=== PATIENT | female | born 1985 | race Caucasian/White ===

== ENCOUNTER 2022-12-03 14:40 | Inpatient (IN) | payer OTHER, SELFPAY ==
[2022-12-03] VITALS (90 sets, daily range): BP systolic 109–188; BP diastolic 51–165; PULSE 57–110; RESP 16–18; TEMP 36.6–36.9; O2SAT 98–100; BMI 27.3
[2022-12-03] MEDS: LACTATED RINGERS 1,000 ML 125 ML IV CONT ×2 (15:10→15:54)
[2022-12-03 15:17] LABS: Basophils Percent Auto 0.5 % (0.2-1.2); Eosinophils Percent Auto 0.3 % (0-4.4); Hemoglobin 13.5 g/dL (12.0-15.0); Immature Granulocyte Absolute 0.05 K/mm3 (0.00-0.031); Immature Granulocyte Percent A 0.6 % (0-0.5); Lymphocytes Absolute Auto 1.22 K/mm3 (0.9-3.2); Mean Corpuscular HGB Conc 33.8 g/dl (32-36); Mean Corpuscular Hemoglobin 32.5 pg (26-34); Mean Corpuscular Volume 96.4 fl (80-100); Mean Platelet Volume 10.2 fl (7.4-10.4); Monocytes Absolute Auto 0.8 K/mm3 (0.1-0.6); Monocytes Percent Auto 9.2 % (2.6-8.5); Neutrophils Absolute Auto 6.6 K/mm3 (1.3-6.7); Neutrophils Percent Auto 75.4 % (45.5-73.1); Platelet Count Result 205 k/mm3 (150-375); Red Blood Count 4.15 M/mm3 (4.2-5.4); Red Cell Distribution Width 13.7 % (11.5-14.5); White Blood Count 8.7 K/mm3 (4.5-10.0)
--- NOTE | 2022-12-03 15:53 | P.PNAN_ITS ---
Anes - Eval Pre Procedure Procedure: labor epidural Date/Time: 12/03/22 15:53 Preop Diagnosis: labor pain Pre Op Diagnosis: IOL Patient Data Age: 37 Gender: F Height: Weight: Last Vital Signs O2 Del Method Room Air 12/03/22 15:21 Allergies Allergy/AdvReac Type Severity Reaction Status Date / Time Penicillins Allergy Rash Verified 11/05/22 12:26 Home Medications Medication Instructions Recorded Confirmed Type prenat.vits,tomi,[id number] 1 tablet PO DAILY 11/05/22 11/05/22 History Laboratory Tests 12/03/22 15:06 WBC 8.7 K/mm3 (4.5-10.0) RBC 4.15 L M/mm3 (4.2-5.4) Hgb 13.5 g/dL (12.0-15.0) Hct 40.0 % (37.0-47.0) MCV 96.4 fl (80-100) MCH 32.5 pg (26-34) MCHC 33.8 g/dl (32-36) RDW 13.7 % (11.5-14.5) Plt Count 205 k/mm3 (150-375) MPV 10.2 fl (7.4-10.4) Immature Gran % (Auto) 0.6 H % (0-0.5) Neut % (Auto) 75.4 H % (45.5-73.1) Lymph % (Auto) 14.0 L % (18.3-44.2) [place] % (Auto) 9.2 H % (2.6-8.5) Eos % (Auto) 0.3 % (0-4.4) Baso % (Auto) 0.5 % (0.2-1.2) Lymph # (Auto) 1.22 K/mm3 (0.9-3.2) [place] # (Auto) 0.8 H K/mm3 (0.1-0.6) Eos # (Auto) 0.0 K/mm3 (0-0.3) Baso # (Auto) 0.0 K/mm3 (0.0-0.1) Abs Immat Gran (auto) 0.05 H K/mm3 (0.00-0.031) Absolute Neuts (auto) 6.6 K/mm3 (1.3-6.7) Absolute Nucleated RBC 0.0 K/mm3 (0.0-0.012) Nucleated RBC % 0.0 % (0.0-0.2) RPR Pending Patient hx anesthesia problems: post op nausea/vomiting Family hx anesthesia problems: none Results Review: All pre-operative results and documents have been reviewed as part of the pre- operative evaluation. [facility] Family History Family History Mother Colon cancer Social History Social History Smoking status: Never smoker Second hand tobacco smoke exposure: No Substance use: never Lack of Transportation: No Lack of Food: Never True Current Housing: I Have Housing Concerned About Future Housing: No Difficulty Paying Gas/Electric Bills: No Difficulty Paying for Meds: No Currently Unemployed: No Education: Associate Degree Difficulty w/ Childcare or Family Care: No Spiritual care concerns: No Exam Day of Procedure 12/03/22 15:53 Patient weight: normal Heart: regular rate and rhythm Lungs: clear to auscultation and normal air movement Airway: Mallampati scale Neurological: alert and oriented
[2022-12-03] MEDS: ONDANSETRON INJ 4 MG/2 ML VIAL IV PUSH (17:12)
--- NOTE | 2022-12-03 17:51 | WPDOBADMIT ---
Obstetrics - Admit Note Admission Note: record reviewed. Additions to the history and/or subsequent changes in the physical findings follow. 37 y/o at 39 5/7 weeks here with contractions. Labor diagnosed. Now comfortable with epidural. Had SROM with clear fluid. GBS neg. AVSS NST reactive TOCO: contractions every 2-3 min ABD soft, nontender, gravid, vertex EXT nontender Cervix C/+1 A: Labor at term. P: Anticipate .
--- NOTE | 2022-12-03 18:27 | PM.OBPRVD ---
OB - Delivery Note Procedure Delivery date: 12/03/22 Procedure: Induction method: None Delivery monitor: External FHT and External Uterine Route of delivery: Laceration Description: Perineal - 2nd Degree Delivery repair: vicryl (3-0) Specimen: Yes (cord blood) Quantitative Blood Loss (ml): 80 Anesthesia type: Epidural Disposition: PACU Complications: None [place] Baby Date of : 12/03/22 Time of : 18:13 Weeks of gestation at delivery: 39 Infant gender: Male presentation: vertex position: Right Occiput Anterior Placenta delivery description: Spontaneous and Normal Configuration Cord Vessel Description: 3 Vessels and Delayed Cord Clamping score one minute: 8 score five minutes: 9
--- NOTE | 2022-12-03 18:29 | PM.OBDSVD ---
DS: Admitting Diagnosis Discharge Date 12/05/22 Admitting Diagnosis IUP at 39 5/7 weeks DS: Discharge Diagnosis Discharge Diagnosis (1) (normal spontaneous vaginal delivery): Code(s): O80 - Encounter for full-term uncomplicated delivery Status: Acute OB - DS: Summary OB Procedures : None OB Procedures Intrapartum: Spontaneous Vag Delivery OB Procedures: : None Time Spent with Patient Time attestation: Total time spent providing and/or coordinating discharge services: DS: Data Data Completed and Pending Labs on day of discharge: Labs from last 24 hours 12/03/22 15:06 WBC 8.7 RBC 4.15 L Hgb 13.5 Hct 40.0 MCV 96.4 MCH 32.5 MCHC 33.8 RDW 13.7 Plt Count 205 MPV 10.2 Immature Gran % (Auto) 0.6 H Neut % (Auto) 75.4 H Lymph % (Auto) 14.0 L [place] % (Auto) 9.2 H Eos % (Auto) 0.3 Baso % (Auto) 0.5 Lymph # (Auto) 1.22 [place] # (Auto) 0.8 H Eos # (Auto) 0.0 Baso # (Auto) 0.0 Abs Immat Gran (auto) 0.05 H Absolute Neuts (auto) 6.6 Absolute Nucleated RBC 0.0 Nucleated RBC % 0.0 RPR Pending Blood Type B Positive Antibody Screen Negative Discharge Plan Discharge Attending physician on discharge: Edward Savage Discharging Clinician: Edward Savage Patient Disposition: Home, Self-Care Activity: pelvic rest Diet: regular Discharge Instructions: Education: Mom and Baby Guide Given to: Mother Follow-Up: Call your delivering provider's office for an appointment to be seen in: 6 Weeks Mom and baby should come to the [facility] for the follow-up appointment. Appointment Date/Time: December 06, 2022 at 11:00 am What to expect at your follow-up visit: Blood Pressure Check Physical Assessment Call [phone] if you are unable to keep your appointment time. BREAST CARE: * Wear a snug supportive bra. * For engorgement discomfort: Bottle Feeding: * May apply ice packs * May use ibuprofen for swelling and pain *Do not pump breasts, this will encourage your body to make more breastmilk. *Engorgement usually lasts around 72 hours EPISIOTOMY/PERINEAL CARE: * Until bleeding stops, use your brandon bottle after urinating * Change your pad frequently throughout the day * You may take sitz baths several times a day (fill your bathtub with warm water and soak for 20 minutes.) Do NOT bathe in the water * No tub baths until seen by your physician - You may shower ACTIVITY: * Rest as much as possible. * Do not exercise or lift anything heavier than your baby (such as laundry or other children.) * Avoid stairs or driving as much as possible. * Do not put anything into the vagina. No douching, tampons, or sexual activity until seen by physician. NOTIFY PHYSICIAN IF YOU HAVE ANY QUESTIONS OR IF ANY OF THE FOLLOWING SYMPTOMS OCCUR: * If your vaginal area becomes red, swollen, or more painful than what you have experienced in the hospital. * If your vaginal bleeding becomes foul smelling. * If your vaginal bleeding becomes more heavy than a period or if your bleeding changes from pink to bright red. However, you may pass an occasional walnut-sized clot once or twice for the first week . * If you experience a sharp, shooting pain in your calves. * If you discover a hard, reddened area on your breast or if you experience flu-like symptoms. DIET: * Eat regular, well-balanced meals. * Drink plenty of fluids daily. Call or return if temperature above 100.4? F, increased abdominal pain, increased vaginal bleeding or any new problems. Stand Alone Forms: General Discharge Information Follow-up/Referrals: Asher Barahona MD [Physician] - 6 Weeks Discharge Medications: New ibuprofen 600 mg tablet 600 mg PO Q6H PRN (Reason: cramps) Qty: 30 0RF Continued prenat.vits,tomi,[id number]-[id number] Tablet 1 tablet PO DAILY Date of admission: 12/03/22 14:40 Prima
[2022-12-03] MEDS: OXYTOCIN 30 UNITS/NS 500 ML 30 UNITS/500 ML BAG 125 UNITS IV CONT (18:50)
--- NOTE | 2022-12-03 20:06 | PC.NURSE ---
Report given to jose juan Ledesma RN
[2022-12-03] MEDS: IBUPROFEN 600 MG TABLET PO (20:21)
[2022-12-03] MEDS: WITCH HAZEL 40 PADS 1 PAD TOPICAL (20:22)
[2022-12-03] MEDS: BENZOCAINE 20% AER SPR (*SP) 56 GM CAN 1 SPRAY TOPICAL (20:22)
--- NOTE | 2022-12-03 21:17 | PC.NURSE ---
Patient transferred to post room #288 via (W/C). Support person present. Oriented to unit, room, information board, rooming in, admission packet and security measures. Patient verbalizes understanding.
[2022-12-04 00:40] VITALS: BP 106/66; PULSE 63; RESP 16; TEMP 36.8; O2SAT 99
[2022-12-04] MEDS: IBUPROFEN 600 MG TABLET PO ×2 (05:06→10:32)
[2022-12-04 05:20] LABS: Hematocrit 36.5 % (37.0-47.0); Hemoglobin 12.3 g/dL (12.0-15.0)
[2022-12-04] MEDS: DOCUSATE SODIUM 100 MG CAPSULE PO (08:00)
[2022-12-04] MEDS: MULTIVIT/MIN/PREN/FOL AC/IRON TABLET 1 TAB PO (08:00)
[2022-12-04 08:05] VITALS: BP 105/69; PULSE 68; RESP 12; TEMP 36.7; O2SAT 99
--- NOTE | 2022-12-04 09:51 | PM.OBPNVD ---
OB - PN: Subj Subjective Date/time seen: 12/04/22 09:51 Narrative: Pain OK. Would like circumcision for son. OB - PN: Obj Data Labs 12/04/22 04:59 Labs: Laboratory Results - last 24 hr 12/03/22 12/04/22 15:06 04:59 WBC 8.7 RBC 4.15 L Hgb 13.5 12.3 Hct 40.0 36.5 L MCV 96.4 MCH 32.5 MCHC 33.8 RDW 13.7 Plt Count 205 MPV 10.2 Immature Gran % (Auto) 0.6 H Neut % (Auto) 75.4 H Lymph % (Auto) 14.0 L [place] % (Auto) 9.2 H Eos % (Auto) 0.3 Baso % (Auto) 0.5 Lymph # (Auto) 1.22 [place] # (Auto) 0.8 H Eos # (Auto) 0.0 Baso # (Auto) 0.0 Abs Immat Gran (auto) 0.05 H Absolute Neuts (auto) 6.6 Absolute Nucleated RBC 0.0 Nucleated RBC % 0.0 Blood Type B Positive Antibody Screen Negative OB - PN A/P Plan Comments: A: PPD#1, doing well. P: Routine care. Reviewed circ. Plan home tomorrow. Exam Psych: Other: AVSS ABD soft, nontender, fundus firm EXT nontender
[2022-12-04] MEDS: TETANUS,DIPHTHERIA,AC PERTUSSIS ADULT (0.5 ML) BOOSTRIX IM (13:58)
--- NOTE | 2022-12-04 15:04 | WPDANLDPN2 ---
Anes-Prog Note L&D Date/Time: 12/04/22 15:04 Comfortable throughout: labor and delivery Neuraxial method: epidural Epidural/Spinal procedure site: clean & non-tender Neuro status: Neuro function grossly intact. Cardiovascular status: normal Respiratory status: normal Airway patency: baseline Mental status: baseline Post-Op hydration status: normal Vital Signs: Last Vital Signs Temp 36.7 C 12/04/22 08:05 Pulse 68 12/04/22 08:05 Resp 12 12/04/22 08:05 BP 105/69 12/04/22 08:05 Pulse Ox 99 12/04/22 08:05 O2 Del Method Room Air 12/03/22 21:36 Pain score (VAS): 0 I/O: Intake & Output 12/03/22 12/04/22 12/04/22 23:59 07:59 15:59 Output Total 130 Balance -130 Post-procedural complaints: none Patient feedback: Patient satisfied with anesthetic care.
--- NOTE | 2022-12-04 16:15 | PC.NURSE ---
Patient viewed the discharge video Mother & Baby Care, The First Two Weeks . Patient was given the opportunity and encouraged to ask questions. Patient verbalized understanding of information shared and has been given the mother/baby guide for home reference.
[2022-12-04] MEDS: WITCH HAZEL 40 PADS 1 PAD TOPICAL (17:00)
[2022-12-04] MEDS: BENZOCAINE 20% AER SPR (*SP) 56 GM CAN 1 SPRAY TOPICAL (17:00)
[2022-12-04 20:00] VITALS: BP 125/84; PULSE 90; RESP 16; TEMP 36.6; O2SAT 98
[2022-12-05 08:00] VITALS: BP 121/72; PULSE 77; RESP 16; TEMP 37.2; O2SAT 100
--- NOTE | 2022-12-05 08:39 | PM.OBPNVD ---
OB - PN: Subj Subjective Date/time seen: 12/05/22 08:39 Narrative: Pain OK. Would like to go home. OB - PN: Obj Data Labs 12/04/22 04:59 OB - PN A/P Plan Comments: A: PPD#2, doing well. P: Home to f/u 6 weeks. Exam Psych: Other: AVSS ABD soft, nontender, fundus firm EXT nontender
[2022-12-05] MEDS: DOCUSATE SODIUM 100 MG CAPSULE PO (09:30)
[2022-12-05] MEDS: IBUPROFEN 600 MG TABLET PO (09:30)
[2022-12-05] MEDS: MULTIVIT/MIN/PREN/FOL AC/IRON TABLET 1 TAB PO (09:30)
[2022-12-05] MEDS: WITCH HAZEL 40 PADS 1 PAD TOPICAL (09:30)
[2022-12-05] MEDS: BENZOCAINE 20% AER SPR (*SP) 56 GM CAN 1 SPRAY TOPICAL (09:30)
[2022-12-05 16:55] LABS: Rapid Plasma Reagin Non-Reactive (NonReactive)
[2022-12-06 11:24] VITALS: BP 112/78; PULSE 85; RESP 18; TEMP 36.8; O2SAT 98
== END 2022-12-05 10:13 | disposition home or self-care (01) | DRG 807 ==
LOC: ANHLDR 18:31 → ANHOB2 12-05 06:54 → ANHLDR 12-06 09:15 → ANHOB2 12-06 09:15
PROVIDERS: Admitting Provider Obstetrics & Gynecology; Visit Provider Obstetrics & Gynecology
DX: O69.81X0 Labor and delivery complicated by cord around neck, without compression, not applicable or unspecified (principal); Z37.0 Single live birth; O70.1 Second degree perineal laceration during delivery; Z3A.39 39 weeks gestation of pregnancy
CPT/HCPCS: 36415; 85014; 85018; 85025; 86592; 86850; 86900; 86901; 90715; A9270; J2405; J2590; J2795; J7120